=== PATIENT | male | born 1975 | race Two or more races ===

== ENCOUNTER 2023-05-23 17:23 | Emergency (ER) | payer SELFPAY ==
[~2023-05-23] VITALS: Ht 167.6 cm; Wt 80.6 kg
[2023-05-23 18:38] VITALS: BP 116/50; PULSE 74; RESP 18; O2SAT 98
== END 2023-05-23 22:19 | disposition left against medical advice (07) ==
LOC: ER 17:23
DX: M54.50 Low back pain, unspecified (principal); Z53.21 Procedure and treatment not carried out due to patient leaving prior to being seen by health care provider